=== PATIENT | male | born 1960 | race Caucasian/White ===

== ENCOUNTER 2025-06-30 11:43 | Emergency (ER) | payer MEDICARE, MEDICAID, SELFPAY ==
[2025-06-30 11:44] VITALS: BP 143/8; PULSE 74; RESP 20; TEMP 36.6; O2SAT 96; BMI 29.5
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
[2025-06-30] MEDS: Lidocaine 1% /Epi 1:100 (20ml) 20 ML Vial INFILT (12:14)
[2025-06-30 13:37] VITALS: BP 143/8; PULSE 74; RESP 20; TEMP 36.6; O2SAT 96
--- NOTE | 2025-06-30 14:09 | ED.RN ---
Pt very upset and wants us to call [facility]. PT yelling at this nurse about getting out of here. Pt states Im done with this bullshit. I explained to him that we would call [facility]. He told this nurse to well get off your ass and go call them. Pt was advised not to talk to me like that and we will call for a different ride.
--- NOTE | 2025-06-30 14:37 | ED.RN ---
PT stated that he has been sitting in poop and urine since he has been here. Pt was cleaned up and he stated that he feels much better.
--- NOTE | 2025-06-30 15:34 | ED.RN ---
This RN attempted to call report on patient. No answer from [facility] staff.
== END 2025-06-30 15:35 | disposition skilled nursing facility (03) ==
PROVIDERS: Emergency Provider Emergency Medicine; PCP Hospitalist; Visit Provider Emergency Medicine
DX: S81.811A Laceration without foreign body, right lower leg, initial encounter (principal); G82.20 Paraplegia, unspecified; I11.0 Hypertensive heart disease with heart failure; I50.9 Heart failure, unspecified; G40.909 Epilepsy, unspecified, not intractable, without status epilepticus; E66.01 Morbid (severe) obesity due to excess calories; E11.42 Type 2 diabetes mellitus with diabetic polyneuropathy; W22.8XXA Striking against or struck by other objects, initial encounter; Z99.3 Dependence on wheelchair; J30.2 Other seasonal allergic rhinitis; M10.9 Gout, unspecified; K59.00 Constipation, unspecified; F17.210 Nicotine dependence, cigarettes, uncomplicated; Z79.899 Other long term (current) drug therapy
CPT/HCPCS: 12005; 99285